=== PATIENT | male | born 1955 | race Caucasian/White ===

== ENCOUNTER 2017-01-25 18:50 | Inpatient (IN) | payer MEDICAID ==
[~2017-01-25] VITALS: Ht 185.4 cm; Wt 117.3 kg
[2017-01-25 20:24] LABS: BASOPHILS 0.2 % (0.0-2.0); EOSINOPHILS 0.1 % (0-7); HEMATOCRIT 26.3 % (42.0-54.0); HEMOGLOBIN 8.5 g/dL (13.5-17.5); IMMATURE GRANULOCYTES 0.6 % (0-5); MCH 27.7 pg (26.0-34.0); MCHC 32.3 g/dL (31.0-37.0); MCV 85.7 fL (80.0-100.0); MEAN PLATELET VOLUME 9.5 fL (7.4-10.4); MONOCYTES 9.1 % (2-11); PLATELET COUNT 160 10x3/uL (130-400); RBC 3.07 10x6/uL (4.20-6.10); RDW 19.1 % (11.5-14.5); WBC 17.6 10x3/uL (4.8-10.8)
[2017-01-25 20:44] LABS: ALBUMIN 2.1 g/dL (3.4-5.0); ANION GAP 17.1 mmol/L (8-16); BILIRUBIN - TOTAL 0.54 mg/dL (0.2-1.3); CALCIUM 7.9 mg/dL (8.5-10.1); CARBON DIOXIDE 21.9 mmol/L (21.0-32.0); CREATININE - SERUM 1.5 mg/dL (0.6-1.3); PROTEIN - SERUM 6.1 g/dL (6.4-8.2)
--- NOTE | 2017-01-25 21:34 | NUR ---
REC'D PT FROM ER VIA BED. PT ACCOMPANIED BY 2 GUARDS. PT A/O X3. PICC TO LEFT UPPER ARM WITH DRESSING CLEAN, DRY, AND INTACT. HOWARD CATH PATENT TO BSD WITH DARK YELLOW URINE. WOUND VAC DRESSING TO COCCYX, DRESSING INTACT, BUT DOES NOT HAVE WOUND VAC WITH HIM. DRESSINGS TO BILATERAL HEELS D/T PRESSURE ULCERS, DRESSINGS CLEAN DRY AND INTACT. PT WITH DRESSING TO LEFT LOWER LEG D/T SKIN TEAR. PITTING EDEMA NOTED TO BILATERAL LOWER EXTREMITIES. PT REQUEST FOOD. NURSE PROVIDED PT WITH SANDWICH, AND WATER. ORIENTED PT TO ROOM. CALL LIGHT WITH IN REACH. WILL CONT. TO MONITOR.
--- NOTE | 2017-01-25 21:45 | NUR ---
NURSE ATTEMPTING TO ADMIT PT AND GO OVER HISTORY. PT REPLIED " I DONT' REALLY REMEMBER ANY OF IT. DIDN'T THEY SEND YOU ANY RECORDS?" NURSE WILL REFER TO ASSISTED RECORDS FOR ADMISSION HX.
--- NOTE | 2017-01-25 22:37 | NUR ---
CALLED [facility] RN/ASSISTANT PARALEGAL REQUEST WOUND VAC AND SUPPLIES.
[2017-01-25] MEDS ORDERED: OXYCONTIN15 MG PO (22:39)
[2017-01-25] MEDS ORDERED: PERCOCET 7.5/321 TAB PO (22:40)
[2017-01-25] MEDS ORDERED: BENADRYL25 MG PO (22:41)
[2017-01-25] MEDS ORDERED: MYCOSTATIN 15 G15 GM TOPICAL (22:41)
[2017-01-25] MEDS ORDERED: ENULOSE10 G/15 ML PO (22:43)
[2017-01-25 22:45] LABS: APPEARANCE HAZY (CLEAR); BILIRUBIN NEGATIVE (NEGATIVE); COLOR DK YELLOW (YELLOW); GLUCOSE NEGATIVE (NEGATIVE); KETONE NEGATIVE (NEGATIVE); LEUKOCYTE ESTERASE 1+ (NEGATIVE); NITRITE NEGATIVE (NEGATIVE); PROTEIN TRACE mg/dL (NEGATIVE); SPECIFIC GRAVITY 1.025 (1.005-1.020); UROBILINOGEN NORMAL (NORMAL)
[2017-01-25 22:47] LABS: BACTERIA MODERATE /hpf (NONE SEEN)
[2017-01-25] MEDS ORDERED: MORPHINE 44 MG/1 M1 IV (22:52)
[2017-01-25] MEDS ORDERED: PROMOD LIQUID P30 M1 PO (22:53)
[2017-01-25] MEDS ORDERED: KLOR-CON 1010 MEQ PO (22:53)
[2017-01-25] MEDS ORDERED: MIRALAX17 GM PO (22:56)
[2017-01-25] MEDS ORDERED: COREG 3.1253.125 MG PO (22:58)
[2017-01-25] MEDS ORDERED: ZYVOX PREMIX600 MG IV (22:58)
[2017-01-25] MEDS ORDERED: HUMULIN 70100 UNIT/1 SC ×2 (22:59→23:02)
[2017-01-25] MEDS ORDERED: ACETAMINOPHEN325 MG PO (23:00)
[2017-01-25] MEDS ORDERED: MAG-OX 400 MG400 MG PO (23:01)
[2017-01-25] MEDS ORDERED: ZOFRAN8 MG PO (23:01)
[2017-01-25] MEDS ORDERED: CARDURA2 MG PO (23:02)
[2017-01-25] MEDS ORDERED: NEURONTIN 300300 MG PO (23:03)
[2017-01-25] MEDS ORDERED: ZANTAC300 MG PO (23:04)
[2017-01-25] MEDS ORDERED: CARDIZEM CD180 MG PO (23:04)
[2017-01-25] MEDS ORDERED: COLACE100 MG PO (23:04)
[2017-01-25] MEDS ORDERED: LIPITOR40 MG PO (23:08)
[2017-01-25] MEDS ORDERED: FUROSEMIDE40 MG PO (23:08)
[2017-01-26] VITALS (7 sets, daily range): BP systolic 89–144; BP diastolic 40–78; Ht 185.4 cm; Wt 117.3 kg
--- NOTE | 2017-01-26 00:38 | NUR ---
PT UPSET D/T NOT HAVING WOUND VAC HOOKED UP YET. WILL CALL [facility] AGAIN. PT REQUESTING PAIN MED. NURSE EXPLAINED HAS NOT ORDERED ANY AND NURSE WILL HAVE TO CALL DR TO GET ORDERS. PT BECAME UPSET AND SAYING " SO AM I SUPPOSE TO JUST LAY HERE AND FREAKING HURT! I'VE BEEN HERE BEFORE AND I'VE TAKEN IT. SO, WHY CAN'T YOU JUST GIVE IT TO ME." NURSE EXPLAINED AGAIN THAT PAIN MEDS CANNOT BE GIVEN WITHOUT ORDER. WILL PAGE FOR ORDER. CALL LIGHT WITH IN REACH. TOOK PT FRESH WATER. WILL CONT. TO MONITOR.
--- NOTE | 2017-01-26 00:54 | NUR ---
GAS FITTER AT BEDSIDE, NEEDS ADDRESSED AT THIS TIME. CALL LIGHT IN REACH. WILL CONT TO MONITOR.
--- NOTE | 2017-01-26 01:20 | NUR ---
PT SLEEPING. SNORING. RESP UNLABORED. NO DISTRESS NOTED. LAYING ON RIGHT SIDE. NOTIFIED GUARD OF PT'S ISOLATION STATUS. WILL CONT. TO MONITOR.
--- NOTE | 2017-01-26 03:03 | NUR ---
REC'D WOUND VAC FROM DRIVER SALESMAN.
--- NOTE | 2017-01-26 04:09 | NUR ---
WOUND VAC HOOKED UP TO SUCTION. NO LEAK DETECTED. WILL CONT. TO MONITOR.
--- NOTE | 2017-01-26 04:18 | NUR ---
PT REFUSES SCD'S AT THIS TIME.
--- NOTE | 2017-01-26 05:38 | NUR ---
PT SLEEPING. RESP EVEN AND UNLABORED. NO DISTRESS NOTED. WOUND VAC TO SUCTION, NO LEAKS NOTED. CALL LIGHT WITH IN REACH. GUARD IN ROOM. WILL CONT. TO MONITOR.
--- NOTE | 2017-01-26 07:30 | NUR ---
PT IS RESTING IN BED WITH EYES CLOSED. AWOKE EASILY TO VERBAL STIMULI. PT DID NOT SPEAK TO ME WHEN SPOKEN TO. PT INFORMED THAT DR LEBLANC HAD ORDERED HIS PICC LINE TO BE CHANGED OUT. CONTACT PRECAUTIONS OBSERVED WITH PT. SR'S ARE UP X 2 IN BED. CALL LIGHT AND BEDSIDE TABLE ARE WITHIN EASY REACH. CHIEF UNDERWRITER IS IN ROOM.
--- NOTE | 2017-01-26 09:50 | NUR ---
VASCULAR NURSE IS CHANGING PICC LINE ACCESS.
--- NOTE | 2017-01-26 09:57 | NUR ---
RESTS IN ISOLATION ROOM WITH CALL LIGHT IN REACH. WILL MONITOR NEEDS.
[2017-01-26 11:31] LABS: PRE-ALBUMIN 9.6 mg/dL (18.0-35.7); TROPONIN-I 0.03 ng/mL (0.000-0.060)
--- NOTE | 2017-01-26 13:14 | NUR ---
DRESSINGS TO JESSICA HEELS CHANGED BY WOUND CARE NURSE.
--- NOTE | 2017-01-26 16:05 | NUR ---
WOUND CARE CONSULT: THERE ARE NUMEROUS WOUNDS NOTED DURING ASSESSMENT: 1- RIGHT HEEL SURGICALLY DEBRIDED UNSTAGEABLE PRESSURE INJURY MEASURING 8CM X 4CM X 0.1CM 2- LEFT HEEL SURGICALLY DEBRIDED UNSTAGEABLE PRESSURE INJURY MEASURING 8CM X 6CM X 0.5CM 3- LEFT LATERAL CALF: SURGICALLY DEBRIDED UNSTAGEABLE PRESSURE INJURY MEASURING 5.5CM X 2CM X 0.7 4- RIGHT LATERAL CALF: SURGICALLY DEBRIDED UNSTAGEABLE PRESSURE INJURY MEASURING 4CM X 2CM X 0.3CM (HEALING) 5- LEFT LOWER BUTTOCK: STAGE 2 PRESSURE INJURY MEASURING 1.5CM X 1CM X 0.2CM PT ALSO HAS 3 SURGICALLY DEBRIDED PRESSURE INJURIES ON A)LEFT BUTTOCK B)SACRUM C)RIGHT BUTTOCK - THESE ARE COVERED WITH WOUND VAC DRESSING AND WILL BE ASSESSED ON 01/27 DURING DRESSING CHANGE. ALL THE ABOVE WOUNDS WERE SURGICALLY DEBRIDED ON 11/12/[address] LEBLANC. CURRENT TREATMENT INVOLVES: SANTYL OINTMENT TO WOUND ON LEFT CALF XEROFORM GAUZE ON HEELS AND RIGHT CALF - WOUND VAC TO BOTTOM WOUND CARE WILL CONTINUE TO [facility]. RECOMMEND AIR OVERLAY MATTRESS AND TURN Q2H TURN SCHEDULE.
--- NOTE | 2017-01-26 16:36 | NUR ---
PT RESTING IN BED WITH EYES OPEN. STATES HE FEELS MUCH BETTER SINCE DIGITAL LIBRARIAN PUMP STARTED. DENIES NEEDS AT THIS TIME.
--- NOTE | 2017-01-26 19:33 | NUR ---
ASSESSMENT COMPLETE, A&O, RESPERATIONS EVEN ON ROOM AIR. RIGHT ARM PICC WITH DILAUDID PSYCHOLOGIST ENGINEERING IN USE FOR PAIN CONTROL. PT CURRENTLY DENEIS PAIN. DRSGS NOTED TO COCCYX WITH WOUND VAC, BILATERAL HEELS AND CALF DRSGS C/D/I. GUARD AT BED SIDE, BED LOW, CL IN REACH.
--- NOTE | 2017-01-26 20:57 | NUR ---
HS MEDS GIVEN, GUARD AT BED SIDE, PT DENIES NEEDS, BED LOW, CL IN REACH.
[2017-01-27 01:25] VITALS: BP 138/72
--- NOTE | 2017-01-27 02:00 | NUR ---
RESTING WITH EYES CLOSED, RESPERATIONS EVEN, NO S/S DISTRESS NOTED.
--- NOTE | 2017-01-27 03:35 | NUR ---
WOUND VAC TO COCCYX REMOVED, WET TO DRY APPLIED TO COCCYX AND LUMBAR WOUNDS. WILL CONT TO MONITOR.
[2017-01-27 05:45] VITALS: BP 169/65
[2017-01-27 06:15] LABS: ALBUMIN 1.9 g/dL (3.4-5.0); ALKALINE PHOSPHATASE 77 U/L (46-116); CALC OSMOLALITY 271 mosm/kg (275-300); CALCIUM 8.1 mg/dL (8.5-10.1); CARBON DIOXIDE 25.6 mmol/L (21.0-32.0); CHLORIDE - SERUM 101 mmol/L (98-107); GLUCOSE 116 mg/dL (74-106); MAGNESIUM - SERUM 1.7 mg/dL (1.8-2.4); PHOSPHOROUS 3.3 mg/dL (2.5-4.9); POTASSIUM - SERUM 3.6 mmol/L (3.5-5.1); PROTEIN - SERUM 5.9 g/dL (6.4-8.2); SODIUM 135 mmol/L (136-145); UREA NITROGEN 14 mg/dL (7-18)
[2017-01-27 06:17] LABS: ALT (SGPT) 12 U/L (10-68); CREATININE - SERUM 0.9 mg/dL (0.6-1.3); eGFR NON AFRICAN AMERICAN > 90 mL/min (90-120)
[2017-01-27 06:47] LABS: BASOPHILS 0.2 % (0.0-2.0); EOSINOPHILS 4.2 % (0-7); HEMATOCRIT 25.4 % (42.0-54.0); HEMOGLOBIN 8.1 g/dL (13.5-17.5); IMMATURE GRANULOCYTES 0.3 % (0-5); LYMPHOCYTES 16.8 % (15-50); MCH 27.2 pg (26.0-34.0); MCHC 31.9 g/dL (31.0-37.0); MCV 85.2 fL (80.0-100.0); MEAN PLATELET VOLUME 10.2 fL (7.4-10.4); MONOCYTES 13.7 % (2-11); NEUTROPHILS 64.8 % (40-80); PLATELET COUNT 188 10x3/uL (130-400); RBC 2.98 10x6/uL (4.20-6.10); RDW 19.2 % (11.5-14.5)
[2017-01-27 06:50] LABS: WBC 12.5 10x3/uL (4.8-10.8)
[2017-01-27 08:00] VITALS: BP 127/61
--- NOTE | 2017-01-27 10:24 | NUR ---
WOUND VAC DRESSING: NEW WOUND VAC DRESSING APPLIED TO WOUNDS (LEFT UPPER BUTTOCK AND COCCYX). LEFT UPPER BUTTOCK APPEARS A SURGICALLY DEBRIDED STAGE 4 THAT IS HEALING. IT MEASURES 8CM X 3.2CM X 3CM X 6CM @ 11 OCLOCK. THE WOUND BED IS RED NO NECROTIC TISSUE IS NOTED. A SLIGHT ODOR IS NOTED. SACRUM/COCCYX APPEARS A SURGICALLY DEBRIDED STAGE 4 THAT IS ALSO HEALING. IT MEASURES 3.7CM X 2CM X 4CM X 3CM @ 12 OCLOCK. THE WOUND BED IS RED WITH NO NECROTIC TISSUE. THERE IS A SLIGHT ODOR. CLEANSED BOTH WOUNDS WITH WOUND GRISTMILL OPERATOR AND PREPPED SURROUNDING SKIN WITH CAVILON SKIN PROTECTANT. PLACED 1 PIECE OF BLACK SPONGE INTO THE TUNNEL ON THE LEFT UPPER BUTTOCK AND 1 PIECE OF BLACK SPONGE IN THE WOUND BED. REPEATED SAME PROCESS ON THE SACRAL/COCCYX WOUND. PIGTAILED BOTH WOUNDS WITH 2 MORE BLACK STRIPS OF SPONGE AND PLACED THE TRAC PAD ON PTS LEFT HIP FOR COMFORT. TOTAL OF 6 PIECES OF BLACK SPONGE USED. VAC MACHINE RESTARTED AND IMMEDIATELY ASSUMED NEGATIVE PRESSURE WITH NO LEAKS. PT TOLERATED WELL. WOUND CARE WILL CONTINUE TO MONITOR.
[2017-01-27 12:00] VITALS: BP 137/48
--- NOTE | 2017-01-27 14:29 | NUR ---
ALERT AND ORIENTED X4. RESTING IN BED. GAURD AT BEDSIDE. ANKLES SHACKLED TOGETHER. REPOSITION SHACKLES ON ANKLE TO PREVENT BREAKDOWN. PAIN MANAGEMENT WITH CHECKOUT OPERATOR DILAUDID. DENIES SOB. PRUNE JUICE AND SPRITE MIXTURE DRANK TO PROMOTE BM. CONTINUE PLAN OF CARE. BED LOCKED AND LOW. CALL LIGHT IN REACH. TWO SIDERAILS UP. WOUND VAC INTACT. NO AIR LEAKS.
--- NOTE | 2017-01-27 15:59 | NUR ---
Patient Name: NANDO OLIVAREZ Admission Status: ER Accout number: [id number] Admission Date: 01-25-2017 : 1955 Admission Diagnosis: Attending: ALBERT Current LOS: 2 Anticipated DC Date: Planned Disposition: Court\Law Enforcement Primary Insurance: MEDICAID [facility] PENDING EXTERNAL PROVIDER: [facility], [place], [place]. Discharge Planning Comments: * Is the patient Alert and Oriented? Yes 0 * How many steps to enter\exit or inside your home? NONE 0 * PCP DR. SENIOR, [facility] 0 * Pharmacy [facility]; [place], [place] 0 * Preadmission Environment Other 0 * Other Environment [facility] 0 * Facility Name [facility]; [place], [place] 0 * ADLs Independent 0 * Equipment Wheelchair Wound Vac 0 * Other Equipment [facility]; [place], [place] - MEDICAL EQUIPMENT PROVIDER 0 * List name and contact numbers for known caregivers / representatives who currently or will assist patient after discharge: [facility]; [place], [place] - [phone] 0 * Community resources currently utilized None 0 * Please name any agencies selected above. NONE 0 * Additional services required to return to the preadmission environment? No 0 * Can the patient safely return to the preadmission environment? Yes 0 * Has this patient been hospitalized within the prior 30 days at any hospital? No 0 CM MET WITH PT AND SUPERVISOR FINISHING IN ROOM TO DISCUSS DISCHARGE PLANNING AND NEEDS. PT IS SENTENCED TO [facility] AND PLACED AT THE [facility] IN [place]. PT IS CURRENTLY HOUSED IN THE MEDICAL UNIT AT THE [facility] SUPERVISED AND TREATED BY DR. SENIOR. PT DENIES DISCHARGE NEEDS, REPORTS HE WILL NEED AMBULANCE TO GET BACK AT DISCHARGE. FOR DISCHARGE BACK TO [facility], NURSE REPORT TO BE CALLED TO DR. SENIOR [phone]. CM TO FOLLOW AND ASSIST NEEDED. Drawbridge Operator: Madhu Rubio
--- NOTE | 2017-01-27 16:56 | NUR ---
ALERT AND ORIENTED X4. LAYING IN BED. LINEN SOILED BY LARGE BOWEL MOVEMENT. LINEN CHANGED. 800mL OUT OF HOWARD. COMPLAINS OF UPSET STOMACH. ZOFRAN GIVEN FOR RELIEF ORDERED. DENIES SOB. PAIN MANAGEMENT WITH TRAINING PROFESSIONAL PUMP. CONTINUE PLAN OF CARE AND SAFETY PRECAUTIONS.
[2017-01-27 20:00] VITALS: BP 138/68
--- NOTE | 2017-01-27 23:16 | NUR ---
RESTING ON RIGHT SIDE, RESPERATIONS EVEN, GUARD AT BED SIDE.
[2017-01-28] VITALS: BP 133/65
--- NOTE | 2017-01-28 00:36 | NUR ---
CHIEF MAINTENANCE SUPERVISOR AT BEDSIDE TO OBTAIN VITALS, CALL LIGHT IN REACH. WILL CONTINUE WITH PLAN OF CARE.
--- NOTE | 2017-01-28 02:40 | NUR ---
REPOSITIONED IN BED FOR COMFORT.
[2017-01-28 04:00] VITALS: BP 159/69
--- NOTE | 2017-01-28 07:22 | NUR ---
PT LAYING TO R SIDE. SLEEPING NO S/S DISTRESS NOTED. WILL CONT TO MONITOR.
[2017-01-28 07:56] VITALS: BP 124/57
[2017-01-28 11:38] VITALS: BP 162/92
--- NOTE | 2017-01-28 13:36 | NUR ---
PT WAS INC OF . WOUND VAC DRESSING WAS SATURATED. CHANGED WOUND VAC DRESSING WITH YESICA WOUND CARE NURSE. DRESSING CHANGED AND SIGNED AND DATED.
[2017-01-28 15:30] VITALS: BP 133/97
--- NOTE | 2017-01-28 19:14 | NUR ---
PT SITTING UP IN BED GAURD AT BEDSIDE. GIVEN REPORT TO JOSEPH PEST CONTROL APPLICATOR LESLIE
[2017-01-28 20:00] VITALS: BP 154/77
[2017-01-29] VITALS: BP 150/78
[2017-01-29 04:00] VITALS: BP 154/77
--- NOTE | 2017-01-29 07:22 | NUR ---
PT SITTING UP IN BED WITH GAURD AT BEDSIDE. DENIES NEEDS WILL CONT TO MONITOR.
--- NOTE | 2017-01-29 10:08 | NUR ---
WOUND VAC PER WOUND CARE NURSE
[2017-01-29 12:00] VITALS: BP 152/97
[2017-01-29] MEDS ORDERED: MAXIPIME 1 GM/D51 G1 IV (13:38)
--- NOTE | 2017-01-29 14:49 | NUR ---
SPOKE WITH DR LEBLANC ABOUT PT DC. HE IS OK WITH PT TO GO HOME BUT HE CANNOT GET IN TOUCH WITH [facility] TALKED WITH THE GUARD IN ROOM AND ASKED HIM IF HE WOULD CALL [facility] AND TELL THEM TO CALL DR LEBLANC SO THAT THEY CAN DO HAND OFF. BERNADETTE URIARTE HE CALLED AND COULDNT GET THROUGH. PT WANTS TO GO BACK TO [facility]. DC PAPERWORK IS FINISHED, WAITING TO CALL AMBULANCE UNTIL DR HANDOFF IS COMPLETE. I TRIED TO CALL [facility] PERSONALLY AND COULD NOT GET THROUGH TO ANYONE. ASKED DENNISE AWS SOFTWARE DEVELOPMENT ENGINEER TO SEE IF SHE COULD GET IN TOUCH WITH ANYONE.
--- NOTE | 2017-01-29 15:31 | NUR ---
DENNISE CHILD AND FAMILY THERAPIST GOT IN TOUCH WITH OSMIN AT [facility] AND SHE GOT IN TOUCH WITH [facility] AND THEY SAID THAT IT WAS OK TO CALL REPORT AND GET PT TO HOSPITAL VIA AMBULANCE SINCE THE CUSTODIAL DR MARSH CALL DR LEBLANC FOR REPORT AFTER MULTIPLE ATTEMPTS BY SEVERAL PEOPLE. I CALLED [facility] AND THEY ARE SENDING AMBULANCE IN 30-45 MINUTES. TRIED TO CALL REPORT TO [facility] SPOKE WITH SULEIMAN AND LET HER KNOW WHO WE HAVE TALKED TO AND SHE SAID THAT SHE STILL NEEDED TO GET VERIFICATION AND THAT SHE WOULD CALL ME BACK. REFERRED THIS TO DENNISE AND SHE IS CALLING THE CUSTODIAL AGAIN.
--- NOTE | 2017-01-29 15:57 | NUR ---
CALLED REPORT TO NURSE AT [facility]. EMS WILL BE HERE IN
--- NOTE | 2017-01-29 15:58 | NUR ---
WENT OVER DC PAPEROWKR WITH PT PT VERBALIZES UNDERSTANDING. DR LEBLANC SAID TO KEEP PICC LINE AND HOWARD. WILL DO
--- NOTE | 2017-01-29 18:44 | NUR ---
PT JUSTIN TO [facility] VIA EMS
== END 2017-01-29 18:44 | DRG 872 ==
LOC: D.ER 18:50 → D.M2 19:47
PROVIDERS: Family Medicine; ADMIT Surgery
PROC: 02HV33Z Insertion of Infusion Device into Superior Vena Cava, Percutaneous Approach (ICD-10-PCS; principal; 2017-01-26)
PROC: B548ZZA Ultrasonography of Superior Vena Cava, Guidance (ICD-10-PCS; 2017-01-26)
DX: A41.50 Gram-negative sepsis, unspecified (principal); R65.20 Severe sepsis without septic shock; S31.000A Unspecified open wound of lower back and pelvis without penetration into retroperitoneum, initial encounter; E11.9 Type 2 diabetes mellitus without complications; I10 Essential (primary) hypertension; K59.00 Constipation, unspecified